=== PATIENT | male | born 1960 | race African-American/Black ===

== ENCOUNTER 2019-06-01 10:53 | Emergency (ER) | payer OTHER ==
[~2019-06-01] VITALS: Ht 167.6 cm; Wt 70.0 kg
[2019-06-01] MEDS ORDERED: LIDOCAINE HCL/PF 1% 10 MG/ML 5ML VIAL IJ ONE (12:45)
[2019-06-01] MEDS ORDERED: IBUPROFEN 600MG TABLET PO ONE (12:45)
[2019-06-01 13:43] VITALS: BP 172/88
[2019-06-01] MEDS ORDERED: MUPIROCIN 2% OINT 22GM TOP SCH (14:00)
== END 2019-06-01 13:49 | disposition home or self-care (01) ==
LOC: ER 10:53
DX: L02.412 Cutaneous abscess of left axilla (principal)
CPT/HCPCS: 10060; 99284; J3490; Z7610